=== PATIENT | male | born 1975 | race Caucasian/White ===

== ENCOUNTER → 2018-10-20 16:46 | Outpatient (CLI) | payer OTHER, SELFPAY ==
--- NOTE | 2018-10-20 | DI.RAD.S_ITS ---
PROCEDURE: XR THORACIC SPINE 2V INDICATIONS: THORASIC BACK PAIN TECHNIQUE: 3 views of the thoracic spine were acquired. COMPARISON: None. FINDINGS: Bones: Degenerative endplate changes are noted throughout lower thoracic spine involving T9-10 through T11-12 levels. No fractures or dislocations. No suspicious bony lesions. 12 pairs of ribs are noted, and appear intact where visualized. Soft tissues: No paravertebral stripe thickening. 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 No compression fracture or traumatic spondylolisthesis. Dictated by: Helder Barnett M.D. on 10/21/2018 at 8:28 Approved by: Helder Barnett M.D. on 10/21/2018 at 8:34
--- NOTE | 2018-10-20 16:56 | DI.RAD.S_ITS ---
PROCEDURE: XR LUMBAR SPINE 2-3V INDICATIONS: PAIN TECHNIQUE: 3 views of the lumbar spine were acquired. COMPARISON: [facility], , L-SPINE 2-3 VIEWS, 02/11/2014, 17:04. FINDINGS: Bones: 5 [id number] vertebrae are present. There is normal bony alignment. Degenerative endplate changes at bilateral arthrosis are noted at L4-5 and L5-S1 levels. No vertebral body compression fractures. No suspicious bony lesions. Soft tissues: Overlying bowel gas pattern is normal. No suspicious soft tissue calcifications. IMPRESSION: Degenerative disc disease at L4-5 and L5-S1 levels. No acute compression fracture or traumatic spondylolisthesis. Dictated by: Helder Barnett M.D. on 10/21/2018 at 8:27 Approved by: Helder Barnett M.D. on 10/21/2018 at 8:28
== END ==
PROVIDERS: Family Provider Family Medicine; PCP Family Medicine; Visit Provider Family Medicine
DX: M54.9 Dorsalgia, unspecified (principal); M51.36 Other intervertebral disc degeneration, lumbar region; M51.37 Other intervertebral disc degeneration, lumbosacral region; M51.34 Other intervertebral disc degeneration, thoracic region
CPT/HCPCS: 72070; 72100